=== PATIENT | male | born 1935 | race Caucasian/White ===

== ENCOUNTER 2016-09-19 19:16 | Emergency (ER) | payer OTHER ==
[2016-09-19 20:03] VITALS: BMI 29.0
--- NOTE | 2016-09-19 23:29 | PDOC ---
History of Present Illness - General History Source: Patient Exam Limitations: No Limitations - History of Present Illness Initial Comments: 09/19/16 23:41 The patient is a 81 year old male with significant past medical history of hypertension, hyperlipidemia, cardiomyopathy s/p AICD who presents to the ED left wrist and forearm pain s/p mechanical fall. Patient reports he trip and fell, landing on his outstretched left arm. He sustained pain to the left wrist and forearm. Denies LOC or head trauma. The patient denies fever, chills, cough, SOB, chest pain, and palpitations. The patient denies abdominal pain, nausea, vomiting, and diarrhea. Allergies: NKDA Social History: No alcohol, tobacco, or drug use reported. Past Surgical History: s/p AICD PCP: Dr. Jessi Reynolds <Kellee Almanzar - Last Filed: 09/19/16 23:40> - General History Source: Patient <Isaiah Sahu - Last Filed: 09/20/16 02:05> - General Chief Complaint: Injury Stated Complaint: FALL/INJURY Time Seen by Provider: 09/19/16 22:01 Past History <Kellee Almanzar - Last Filed: 09/19/16 23:40> - Past Medical History HTN: Yes Suicide Attempt (Hx): No - Surgical History Cardiac Surgery: Yes (pacemaker) - Psycho/Social/Smoking Cessation Hx Anxiety: No Suicidal Ideation: No Smoking Status: No Smoking History: Never smoked Number of Cigarettes Smoked Daily: 0 Hx Alcohol Use: No Drug/Substance Use Hx: No <Isaiah Sahu - Last Filed: 09/20/16 02:05> - Past Medical History Allergies/Adverse Reactions: Allergies Allergy/AdvReac Type Severity Reaction Status Date / Time No Known Allergies Allergy Verified 09/19/16 19:57 Home Medications: Ambulatory Orders Carvedilol 12.5 mg PO BID 06/25/12 Rosuvastatin Calcium [Crestor] 20 mg PO DAILY 06/25/12 Amlodipine Besylate [Norvasc -] 5 mg PO DAILY #0 tablet 06/26/12 Lisinopril [Prinivil] 40 mg PO DAILY #0 tablet 06/26/12 Albuterol Sulfate Inhaler - [Ventolin HFA Inhaler -] 2 inh IH PRN #1 inh Ibuprofen 800 mg PO TID #30 tablet 09/20/16 Review of Systems - Review of Systems Able to Perform ROS?: Yes Comments:: 09/19/16 23:41 CONSTITUTIONAL: Absent: fever, no chills, no fatigue EYES: Absent: visual changes ENT: Absent: ear pain, no sore throat CARDIOVASCULAR: Absent: chest pain, no palpitations RESPIRATORY: Absent: cough, no SOB GI: Absent: abdominal pain, no nausea, no vomiting, no constipation, no diarrhea GENITOURINARY: Absent: dysuria, no frequency, no hematuria MUSCULOSKELETAL: +pain to the left wrist and left forearm Absent: back pain SKIN: Absent: rash NEURO: Absent: headache <Kellee Almanzar - Last Filed: 09/19/16 23:40> *Physical Exam - Vital Signs Last Vital Signs Temp Pulse Resp BP Pulse Ox 98 F 62 22 152/80 98 09/19/16 20:01 09/19/16 20:01 09/19/16 20:01 09/19/16 20:01 09/19/16 20:01 - Physical Exam Comments: 09/19/16 23:41 GENERAL: Well-appearing, well-nourished. No apparent distress. HEENT: Normocephalic, atraumatic. PERRL, EOM intact. CARDIOVASCULAR: Normal S1, S2. Regular rate and rhythm. PULMONARY: Clear to auscultation bilaterally. ABDOMEN: Soft, non-distended, non-tender. EXTREMITIES: Soft tissue swelling. Pain on flexion of the wrist. Left elbow intact. No tenderness on palpation. No gross deformities. SKIN: Warm, dry. No rash NEUROLOGICAL: No focal neurological deficits. <Kellee Almanzar - Last Filed: 09/19/16 23:40> - Vital Signs Last Vital Signs Temp Pulse Resp BP Pulse Ox 98 F 62 22 152/80 98 09/19/16 20:01 09/19/16 20:01 09/19/16 20:01 09/19/16 20:01 09/19/16 20:01 <Isaiah Sahu - Last Filed: 09/20/16 02:05> Medical Decision Making - Medical Decision Making 09/20/16 02:04 Dr. Sahu: The scribe's documentation has been prepared under my direction and personally reviewed by me in its entirery. I confirm that the note above accurately reflects all work, treatment, procedures, and medical decision making performed by me. <Isaiah Sahu - Last Filed: 09/20/16 02:05> *DC/Admit/Observation/Transfer - Attestations Scribe Attestion: 09/19/16 23:41 Documentation prepared by Kellee Almanzar, acting as medical doctor md/medical director for Isaiah Sahu MD/. <Kellee Almanzar - Last Filed: 09/19/16 23:40> - Discharge Dispostion Admit: No <Isaiah Sahu - Last Filed: 09/20/16 02:05> Diagnosis at time of Disposition: Left wrist sprain Qualifiers: Encounter type: initial encounter Qualified Code(s): S63.502A - Unspecified sprain of left wrist, initial encounter Sprain of forearm, left Qualifiers: Encounter type: initial encounter Qualified Code(s): S63.502A - Unspecified sprain of left wrist, initial encounter - Discharge Dispostion Disposition: HOME Condition at time of disposition: Stable - Referrals Referrals: Jessi Barfield MD [Primary Care Provider] - Jayy Pradhan MD [Staff Physician] - - Patient Instructions Printed Discharge Instructions: DI for Wrist Sprain Print Language: [place] - Post Discharge Activity
[2016-09-19] MEDS ORDERED: IBUPROFEN 400 MG TABLET (FP) PO ONE (23:44)
[2016-09-19] MEDS: IBUPROFEN 600 MG TABLET (FP) PO STA (23:45)
[2016-09-20 06:03] VITALS: BP 140/79; PULSE 68; TEMP 98.1
== END 2016-09-20 05:57 | disposition home or self-care (01) ==
LOC: JERFT 19:16 → JER 19:16 → JERFT 22:07
DX: S63.502A Unspecified sprain of left wrist, initial encounter (principal); S56.912A Strain of unspecified muscles, fascia and tendons at forearm level, left arm, initial encounter; W18.39XA Other fall on same level, initial encounter; Y93.89 Activity, other specified; Y92.89 Other specified places as the place of occurrence of the external cause; I10 Essential (primary) hypertension; E78.5 Hyperlipidemia, unspecified; I42.9 Cardiomyopathy, unspecified; Z95.810 Presence of automatic (implantable) cardiac defibrillator
CPT/HCPCS: 73090-TC-LT; 73110-TC-LT; 99281-25

== ENCOUNTER 2018-03-03 15:41 | Emergency (ER) | payer OTHER ==
[2018-03-03 16:17] VITALS: BP 163/74; PULSE 74; TEMP 97.6; BMI 26.9
--- NOTE | 2018-03-03 17:11 | PDOC ---
History of Present Illness <Mendy Miles - Last Filed: 03/03/18 18:10> - General History Source: Patient Exam Limitations: Language Barrier - History of Present Illness Initial Comments: 03/03/18 18:25 The patient is a 82 year old cymro-speaking male with significant past medical history of hypertension, hyperlipidemia, cardiomyopathy s/p AICD who presents to the ED for evaluation of left flank pain which has now resolved. He states he saw his doctor on Saturday and had normal labs at the time. He states he wants to leave and does not want any treatment. The patient denies fever, chills, cough, SOB, chest pain, and palpitations. The patient denies abdominal pain, nausea, vomiting, and diarrhea. Allergies: NKDA Social History: No alcohol, tobacco, or drug use reported. Past Surgical History: s/p AICD PCP: Dr. Jessi Reynolds <Ngoc Del Valle - Last Filed: 03/03/18 18:29> - General Chief Complaint: Pain Stated Complaint: ABDOMINAL PAIN Time Seen by Provider: 03/03/18 17:11 Past History - Past Medical History COPD: No GI Disorders: Yes HTN: Yes - Surgical History Cardiac Surgery: Yes (pacemaker) - Suicide/Smoking/Psychosocial Hx Smoking Status: No Smoking History: Never smoked Have you smoked in the past 12 months: No Number of Cigarettes Smoked Daily: 0 Information on smoking cessation initiated: No Hx Alcohol Use: No Drug/Substance Use Hx: No <Mendy Miles - Last Filed: 03/03/18 18:10> <Ngoc Del Valle - Last Filed: 03/03/18 18:29> - Past Medical History Allergies/Adverse Reactions: Allergies Allergy/AdvReac Type Severity Reaction Status Date / Time No Known Allergies Allergy Verified 03/03/18 16:15 Home Medications: Ambulatory Orders Carvedilol 12.5 mg PO BID 06/25/12 Rosuvastatin Calcium [Crestor] 20 mg PO DAILY 06/25/12 Amlodipine Besylate [Norvasc -] 5 mg PO DAILY #0 tablet 06/26/12 Lisinopril [Prinivil] 40 mg PO DAILY #0 tablet 06/26/12 Albuterol Sulfate Inhaler - [Ventolin HFA Inhaler -] 2 inh IH PRN #1 inh Ibuprofen 800 mg PO TID #30 tablet 09/20/16 Review of Systems - Review of Systems Able to Perform ROS?: Yes Comments:: 03/03/18 18:26 CONSTITUTIONAL: Absent: fever, chills, fatigue EYES: Absent: visual changes ENT: Absent: ear pain, sore throat CARDIOVASCULAR: Absent: chest pain, palpitations RESPIRATORY: Absent: cough, SOB GI: Absent: abdominal pain, nausea, vomiting, constipation, diarrhea GENITOURINARY: Absent: dysuria, frequency, hematuria MUSCULOSKELETAL: (+) Left flank pain. Absent: back pain, arthralgia, myalgia SKIN: Absent: rash NEURO: Absent: headache <Ngoc Del Valle - Last Filed: 03/03/18 18:29> *Physical Exam - Vital Signs Last Vital Signs Temp Pulse Resp BP Pulse Ox 97.6 F 74 20 163/74 97 03/03/18 16:16 03/03/18 16:16 03/03/18 16:16 03/03/18 16:16 03/03/18 16:16 <Mendy Miles - Last Filed: 03/03/18 18:10> - Vital Signs Last Vital Signs Temp Pulse Resp BP Pulse Ox 97.6 F 74 20 163/74 97 03/03/18 16:16 03/03/18 16:16 03/03/18 16:16 03/03/18 16:16 03/03/18 16:16 - Physical Exam Comments: 03/03/18 18:28 Pt declined physical exam. No apparent distress. well-appearing, AAOx3. <Ngoc Del Valle - Last Filed: 03/03/18 18:29> *DC/Admit/Observation/Transfer <Mendy Miles - Last Filed: 03/03/18 18:10> - Attestations Scribe Attestion: 03/03/18 18:29 Documentation prepared by Ngoc Del Valle, acting as medical translator for Mendy Miles MD <Ngoc Del Valle - Last Filed: 03/03/18 18:29> Diagnosis at time of Disposition: Abdominal pain Qualifiers: Abdominal location: unspecified location Qualified Code(s): R10.9 - Unspecified abdominal pain - Discharge Dispostion Disposition: ELOPED - Referrals Referrals: Jessi Barfield MD [Primary Care Provider] - - Patient Instructions - Post Discharge Activity
== END 2018-03-03 18:00 | disposition left against medical advice (07) ==
LOC: JER 15:41
DX: R10.9 Unspecified abdominal pain (principal); I10 Essential (primary) hypertension; E78.5 Hyperlipidemia, unspecified; I42.8 Other cardiomyopathies; Z95.810 Presence of automatic (implantable) cardiac defibrillator
CPT/HCPCS: 99281-25

== ENCOUNTER 2018-10-20 11:31 | Day surgery (SDC) | payer OTHER ==
[2018-10-20 12:34] VITALS: BP 139/87; PULSE 86; TEMP 97.9; BMI 26.4
[2018-10-20] MEDS ORDERED: LIDOCAINE VISCOUS 2% ORAL/TOP 20 ML UNIT-DOSE CUP ONE (12:39)
== END 2018-10-20 13:00 | disposition home or self-care (01) ==
LOC: JASU-ENDO 11:31
PROVIDERS: ATTEND Internal Medicine Cardiovascular Disease
DX: Z53.8 Procedure and treatment not carried out for other reasons (principal)
CPT/HCPCS: 93312; 93325

== ENCOUNTER 2018-10-21 07:05 | Day surgery (SDC) | payer OTHER ==
[2018-10-21 07:51] VITALS: BMI 26.4
[2018-10-21] MEDS ORDERED: LIDOCAINE VISCOUS 2% ORAL/TOP 20 ML UNIT-DOSE CUP ONE (08:26)
[2018-10-21 09:07] VITALS: TEMP 97.5
--- NOTE | 2018-10-21 09:52 | EKG ---
Test Reason : Blood Pressure : / mmHG Vent. Rate : 074 BPM Atrial Rate : 074 BPM P-R Int : 218 ms QRS Dur : 120 ms QT Int : 436 ms P-R-T Axes : 057 -14 017 degrees QTc Int : 483 ms SINUS RHYTHM WITH 1ST DEGREE A-V BLOCK WITH OCCASIONAL PREMATURE VENTRICULAR COMPLEXES POSSIBLE LEFT ATRIAL ENLARGEMENT LEFT VENTRICULAR HYPERTROPHY WITH QRS WIDENING ABNORMAL ECG WHEN COMPARED WITH ECG OF 19-DEC-2012 10:01, PREMATURE VENTRICULAR COMPLEXES ARE NOW PRESENT [place] INTERVAL HAS INCREASED QT HAS LENGTHENED Confirmed by MD CARLOS, ANIA ([id number]) on 10/21/2018 9:52:15 AM Referred By: Jayesh Velez Confirmed By:ANIA GONZALEZ MD
[2018-10-21 11:13] VITALS: BP 136/72; PULSE 76
--- NOTE | 2018-11-10 12:30 | PN ---
Progress Note (short form) - Note Progress Note: Procedure Note for CAIT/synchronized cardioversion on 10/21/18 Risks including esophageal injury discussed with patient. Consent was obtained Preliminary CAIT reveals severe LV systolic dysfunction, no mass or thrombus in LA appendage, ICD lead, mild MR, moderate TR Official report on chart Successful synchronized cardioversion thru device at 35 J and converted to sinus rhythm. CAIT report and procedure note on chart Jayesh Velez MD
== END 2018-10-21 10:48 | disposition home or self-care (01) ==
LOC: JASU-ENDO 07:05
PROVIDERS: ATTEND Internal Medicine Cardiovascular Disease
PROC: 5A2204Z Restoration of Cardiac Rhythm, Single (ICD-10-PCS; 2018-10-21)
PROC: B246ZZ4 Ultrasonography of Right and Left Heart, Transesophageal (ICD-10-PCS; principal; 2018-10-21 08:00)
DX: I48.91 Unspecified atrial fibrillation (principal)
CPT/HCPCS: 92960; 93005; 93010; 93312

== ENCOUNTER → 2020-12-05 | Day surgery (SDC) | payer OTHER ==
[~2020-12-05] MED LIST: BORTEZOMIB (VELCADE) 2.5 MG/ML SUB-Q INJECTION SQ ONE; DEXAMETHASONE 4 MG TABLET (FP) PO ONE; SODIUM CHLORIDE 0.45% 250 ML IVPB ONE
[2020-12-05 11:35] LABS: BASO % 0.8 % (0-2.0); EOS % 6.4 % (0-4.5); HEMATOCRIT 27.8 % (35.4-49); HEMOGLOBIN 9.3 GM/dL (11.7-16.9); LYMPH % 14.1 % (8-40); MCH 30.7 pg (25.7-33.7); MCHC 33.3 g/dl (32.0-35.9); MEAN CELL VOLUME 92.4 fl (80-96); MEAN PLT VOLUME 10.2 fl (7.5-11.1); MONO % 7.7 % (3.8-10.2); PLATELET COUNT 160 10^3/uL (134-434); RBC 3.01 M/mm3 (4.00-5.60); WHITE BLOOD COUNT 6.7 K/mm3 (4.0-10.0)
[2020-12-05 11:55] LABS: BLOOD UREA NITROGEN 48.2 mg/dL (7-18); CALCIUM 7.7 mg/dL (8.5-10.1); MAGNESIUM 1.7 mg/dL (1.8-2.4)
[2020-12-05 11:59] LABS: CREATININE 3.6 mg/dL (0.55-1.3); URIC ACID 5.6 mg/dL (2.6-7.2)
== END | disposition home or self-care (01) ==
LOC: JONCCHEMO 05:35
PROVIDERS: ATTEND Internal Medicine Hematology & Oncology
DX: Z53.8 Procedure and treatment not carried out for other reasons (principal)
CPT/HCPCS: 36415; 80048; 83615; 83735; 84550; 85025

== ENCOUNTER 2022-05-07 21:12 | Inpatient (IN) | payer OTHER ==
[2022-05-07 21:46] VITALS: BMI 28.4
[2022-05-07] MEDS ORDERED: ASPIRIN 81 MG CHEWABLE TABLETS PO ONE (22:15)
[2022-05-07] MEDS ORDERED: ACETAMINOPHEN 500 MG TABLET (FP) PO ONE (22:15)
[2022-05-07 23:09] LABS: BASO % 0.9 % (0-2.0); EOS % 1.3 % (0-4.5); HEMATOCRIT 41.7 % (35.4-49); HEMOGLOBIN 13.7 GM/dL (11.7-16.9); LYMPH % 12.9 % (8-40); MCH 29.9 pg (25.7-33.7); MEAN CELL VOLUME 90.6 fl (80-96); MEAN PLT VOLUME 9.3 fl (7.5-11.1); MONO % 15.7 % (3.8-10.2); NEUT % 69.2 % (42.8-82.8); PLATELET COUNT 147 10^3/uL (134-434)
[2022-05-07 23:16] LABS: INR 1.52 (0.83-1.09); PROTHROMBIN TIME (PATIENT) 17.5 SEC (9.7-13.0)
[2022-05-07 23:37] LABS: CHLORIDE 104 mmol/L (98-107); SODIUM 141 mmol/L (136-145)
[2022-05-07 23:39] LABS: CALCIUM 9.1 mg/dL (8.5-10.1)
[2022-05-07 23:40] LABS: ALBUMIN 3.3 g/dl (3.4-5.0); ANION GAP 12 MMOL/L (8-16); BLOOD UREA NITROGEN 22.9 mg/dL (7-18); CO2 25 mmol/L (21-32); GLUCOSE,RANDOM 112 mg/dL (74-106); MAGNESIUM 1.9 mg/dL (1.8-2.4)
[2022-05-07 23:42] LABS: CREATININE 1.5 mg/dL (0.55-1.3)
[2022-05-07 23:43] LABS: SGOT/AST 46 U/L (15-37); SGPT/ALT 29 U/L (13-61)
[2022-05-07 23:44] LABS: BILIRUBIN,TOTAL 0.5 mg/dL (0.2-1); TOT PROT 6.6 g/dl (6.4-8.2)
[2022-05-07 23:46] LABS: ALK PHOS 55 U/L (45-117)
[2022-05-07 23:47] LABS: ANISOCYTOSIS 1+; MACROCYTOSIS 0
[2022-05-08] MEDS ORDERED: ASPIRIN 325 MG TABLET PO ONE (03:35)
[2022-05-08] MEDS ORDERED: ACETAMINOPHEN 325 MG TABLET (FP) ONE (03:39)
[2022-05-08] MEDS ORDERED: ASPIRIN 325 MG TABLET ONE (03:39)
[2022-05-08] MEDS ORDERED: SODIUM CHLORIDE 1,000 ML IV SCH (05:45)
[2022-05-08] MEDS ORDERED: APIXABAN 5 MG TABLET ONE (09:34)
[2022-05-08] MEDS ORDERED: CARVEDILOL 12.5 MG TABLET (FP) ONE (09:34)
[2022-05-08] MEDS ORDERED: amLODIPine BESYLATE 10 MG TABLET (FP) ONE (09:35)
[2022-05-08] MEDS ORDERED: TAMSULOSIN HCL 0.4 MG CAP ONE (09:35)
[2022-05-08] MEDS: APIXABAN 5 MG TABLET PO SCH ×2 (10:03→21:56)
[2022-05-08] MEDS: CARVEDILOL 12.5 MG TABLET (FP) PO SCH ×2 (10:03→21:56)
[2022-05-08] MEDS: TAMSULOSIN HCL 0.4 MG CAP PO SCH (10:03)
[2022-05-08] MEDS: amLODIPine BESYLATE 10 MG TABLET (FP) PO SCH (10:03)
[2022-05-08] MEDS ORDERED: REMDESIVIR 200 MG in SODIUM CHLORIDE 250 ML IVPB ONE (16:00)
[2022-05-08] MEDS: SODIUM CHLORIDE 1,000 ML IV SCH (17:42)
[2022-05-08] MEDS: ROSUVASTATIN CA 20 MG TABLET PO SCH (21:56)
[2022-05-09 08:28] LABS: HEMATOCRIT 42.2 % (35.4-49); HEMOGLOBIN 13.7 GM/dL (11.7-16.9); MCH 29.7 pg (25.7-33.7); MCHC 32.4 g/dl (32.0-35.9); MEAN CELL VOLUME 91.4 fl (80-96); MEAN PLT VOLUME 10.3 fl (7.5-11.1); PLATELET COUNT 126 10^3/uL (134-434); RBC 4.62 M/mm3 (4.00-5.60); RDW 13.6 % (11.9-15.9); WHITE BLOOD COUNT 4.4 K/mm3 (4.0-10.0)
[2022-05-09 08:49] LABS: CALCIUM 8.3 mg/dL (8.5-10.1)
[2022-05-09 08:52] LABS: PHOSPHOROUS 2.9 mg/dL (2.5-4.9)
[2022-05-09 08:53] LABS: CREATININE 1.1 mg/dL (0.55-1.3)
[2022-05-09] MEDS: TAMSULOSIN HCL 0.4 MG CAP PO SCH (09:00)
[2022-05-09] MEDS: APIXABAN 5 MG TABLET PO SCH ×2 (09:00→21:39)
[2022-05-09] MEDS: CARVEDILOL 12.5 MG TABLET (FP) PO SCH ×2 (09:00→21:39)
[2022-05-09] MEDS: amLODIPine BESYLATE 10 MG TABLET (FP) PO SCH (09:00)
[2022-05-09 09:39] LABS: ANISOCYTOSIS 1+; MACROCYTOSIS 0; PLATELET ESTIMATE DECREASED
[2022-05-09] MEDS: ASPIRIN 81 MG CHEWABLE TABLETS PO SCH (10:59)
[2022-05-09] MEDS ORDERED: REMDESIVIR 100 MG in SODIUM CHLORIDE 270 ML IVPB SCH (12:30)
[2022-05-09] MEDS: DEXAMETHASONE SOD PHOSPHATE 4 MG/1 ML VIAL IVPUSH SCH (12:54)
[2022-05-09] MEDS: ROSUVASTATIN CA 20 MG TABLET PO SCH (21:39)
[2022-05-09 22:03] LABS: EPI CELLS 1 /uL (0-25.1); HYALINE CASTS 0 /uL (0-3.1); URINE APPEARANCE CLEAR; URINE BACTERIA 1 /uL (0-1359); URINE BILIRUBIN NEGATIVE (NEGATIVE); URINE COLOR YELLOW; URINE GLUCOSE (UA) TRACE (NEGATIVE); URINE KETONE NEGATIVE (NEGATIVE); URINE LEUK ESTERASE NEGATIVE (NEGATIVE); URINE NITRITE NEGATIVE (NEGATIVE); URINE PROTEIN 1+ (NEGATIVE); URINE RBC 4 /uL (0-23.9); URINE UROBILINOGEN 0.2 mg/dL (0.2-1.0); URINE WBC 2 /uL (0-25.8)
[2022-05-10 08:17] LABS: BASO % 0.3 % (0-2.0); BLOOD UREA NITROGEN 19.6 mg/dL (7-18); CALCIUM 8.3 mg/dL (8.5-10.1); HEMATOCRIT 41.7 % (35.4-49); HEMOGLOBIN 13.9 GM/dL (11.7-16.9); LYMPH % 16.1 % (8-40); MCH 29.9 pg (25.7-33.7); MCHC 33.2 g/dl (32.0-35.9); MEAN CELL VOLUME 89.9 fl (80-96); MEAN PLT VOLUME 10.3 fl (7.5-11.1); MONO % 4.9 % (3.8-10.2); NEUT % 78.7 % (42.8-82.8); PLATELET COUNT 134 10^3/uL (134-434); RBC 4.64 M/mm3 (4.00-5.60); RDW 13.6 % (11.9-15.9); WHITE BLOOD COUNT 5.1 K/mm3 (4.0-10.0)
[2022-05-10 08:18] LABS: ALBUMIN 2.9 g/dl (3.4-5.0)
[2022-05-10 08:20] LABS: CREATININE 0.9 mg/dL (0.55-1.3)
[2022-05-10 08:21] LABS: PHOSPHOROUS 2.8 mg/dL (2.5-4.9); TOT PROT 6.3 g/dl (6.4-8.2)
[2022-05-10 08:22] LABS: BILIRUBIN,TOTAL 0.4 mg/dL (0.2-1)
[2022-05-10] MEDS ORDERED: REMDESIVIR 100 MG in SODIUM CHLORIDE 250 ML IVPB SCH (10:00)
[2022-05-10] MEDS: CARVEDILOL 12.5 MG TABLET (FP) PO SCH ×2 (10:37→22:10)
[2022-05-10] MEDS: ASPIRIN 81 MG CHEWABLE TABLETS PO SCH (10:38)
[2022-05-10] MEDS: APIXABAN 5 MG TABLET PO SCH ×2 (10:38→22:10)
[2022-05-10] MEDS: DEXAMETHASONE SOD PHOSPHATE 4 MG/1 ML VIAL IVPUSH SCH (10:38)
[2022-05-10] MEDS: TAMSULOSIN HCL 0.4 MG CAP PO SCH (10:38)
[2022-05-10] MEDS: amLODIPine BESYLATE 10 MG TABLET (FP) PO SCH (10:39)
[2022-05-10] MEDS: ROSUVASTATIN CA 20 MG TABLET PO SCH (22:10)
[2022-05-11 08:29] LABS: BLOOD UREA NITROGEN 18.2 mg/dL (7-18); CALCIUM 8.6 mg/dL (8.5-10.1)
[2022-05-11 08:33] LABS: CREATININE 0.9 mg/dL (0.55-1.3)
[2022-05-11 08:34] LABS: BILIRUBIN,TOTAL 0.4 mg/dL (0.2-1); TOT PROT 6.4 g/dl (6.4-8.2)
[2022-05-11] MEDS: DEXAMETHASONE SOD PHOSPHATE 4 MG/1 ML VIAL IVPUSH SCH (10:22)
[2022-05-11] MEDS: CARVEDILOL 12.5 MG TABLET (FP) PO SCH ×2 (10:22→21:57)
[2022-05-11] MEDS: ASPIRIN 81 MG CHEWABLE TABLETS PO SCH (10:22)
[2022-05-11] MEDS: APIXABAN 5 MG TABLET PO SCH ×2 (10:22→21:57)
[2022-05-11] MEDS: amLODIPine BESYLATE 10 MG TABLET (FP) PO SCH (10:22)
[2022-05-11] MEDS: TAMSULOSIN HCL 0.4 MG CAP PO SCH (10:22)
[2022-05-11] MEDS ORDERED: hydrALAZINE HCL 10 MG TABLET PO SCH (14:00)
[2022-05-11] MEDS: SODIUM CHLORIDE 1,000 ML IV SCH ×2 (21:55→21:56)
[2022-05-11] MEDS: ROSUVASTATIN CA 20 MG TABLET PO SCH (21:57)
[2022-05-12 07:17] VITALS: TEMP 98.2
[2022-05-12] MEDS: TAMSULOSIN HCL 0.4 MG CAP PO SCH (10:31)
[2022-05-12] MEDS: APIXABAN 5 MG TABLET PO SCH (10:31)
[2022-05-12] MEDS: CARVEDILOL 12.5 MG TABLET (FP) PO SCH (10:32)
[2022-05-12] MEDS: ASPIRIN 81 MG CHEWABLE TABLETS PO SCH (10:32)
[2022-05-12] MEDS: amLODIPine BESYLATE 10 MG TABLET (FP) PO SCH (10:32)
[2022-05-12] MEDS: DEXAMETHASONE SOD PHOSPHATE 4 MG/1 ML VIAL IVPUSH SCH (10:32)
[2022-05-12 10:41] VITALS: BP 157/62; PULSE 65; RESP 18
== END 2022-05-12 12:27 | disposition home or self-care (01) | DRG 178 ==
LOC: JER 21:12 → JERBED 05-08 02:10 → J4W 05-08 18:02 → J4S 05-12 02:24
PROVIDERS: ADMIT Internal Medicine; ATTEND Internal Medicine
PROC: XW033E5 Introduction of Remdesivir Anti-infective into Peripheral Vein, Percutaneous Approach, New Technology Group 5 (ICD-10-PCS; principal; 2022-05-08)
PROC: 3E0333Z Introduction of Anti-inflammatory into Peripheral Vein, Percutaneous Approach (ICD-10-PCS; 2022-05-08)
DX: U07.1 COVID-19 (principal); C90.00 Multiple myeloma not having achieved remission; I42.9 Cardiomyopathy, unspecified; I50.32 Chronic diastolic (congestive) heart failure; N17.9 Acute kidney failure, unspecified; J98.11 Atelectasis; M62.82 Rhabdomyolysis; I24.8 Other forms of acute ischemic heart disease; I13.0 Hypertensive heart and chronic kidney disease with heart failure and stage 1 through stage 4 chronic kidney disease, or unspecified chronic kidney disease; N39.0 Urinary tract infection, site not specified; I95.1 Orthostatic hypotension; I48.0 Paroxysmal atrial fibrillation; N18.9 Chronic kidney disease, unspecified; I08.1 Rheumatic disorders of both mitral and tricuspid valves; I25.119 Atherosclerotic heart disease of native coronary artery with unspecified angina pectoris; R07.89 Other chest pain; I10 Essential (primary) hypertension; E78.5 Hyperlipidemia, unspecified; N40.0 Benign prostatic hyperplasia without lower urinary tract symptoms; M60.9 Myositis, unspecified; N28.1 Cyst of kidney, acquired; M50.322 Other cervical disc degeneration at C5-C6 level; E04.1 Nontoxic single thyroid nodule; Z95.810 Presence of automatic (implantable) cardiac defibrillator
CPT/HCPCS: 0241U-QW; 36415; 70450-TC; 71045-TC-FY; 71275-TC; 72125-TC; 72170-TC-FY; 74174-TC; 76775-TC; 80048; 80053; 80061; 81003; 82550; 82553; 83735; 84100; 84443; 84484; 85025; 85610; 85730; 86140; 86850; 86900; 86901; 87086; 93005; 93010; 97116-GP; 97162-GP; 99285-25; C9399; Q9967

== ENCOUNTER 2022-08-19 11:44 | Emergency (ER) | payer OTHER ==
[2022-08-19 12:02] VITALS: BP 169/99; PULSE 81; RESP 18; TEMP 97.9; BMI 26.8
== END 2022-08-19 13:19 | disposition home or self-care (01) ==
LOC: JER 11:44
DX: I10 Essential (primary) hypertension (principal)
CPT/HCPCS: 93005; 93010; 99283-25

== ENCOUNTER 2022-09-14 09:50 | Emergency (ER) | payer OTHER ==
[2022-09-14] MEDS ORDERED: SODIUM CHLORIDE 1,000 ML IV SCH (10:00)
[2022-09-14 10:18] VITALS: BMI 23.8
[2022-09-14 10:31] LABS: INR 1.03 (0.83-1.09); PROTHROMBIN TIME (PATIENT) 11.9 SEC (9.7-13.0)
[2022-09-14 10:34] LABS: ACTIVATED PTT 34.6 SECONDS (25.2-36.5)
[2022-09-14 10:38] LABS: CHLORIDE 105 mmol/L (98-107); SODIUM 138 mmol/L (136-145)
[2022-09-14 10:40] LABS: ANION GAP 4 MMOL/L (8-16); CO2 29 mmol/L (21-32); MAGNESIUM 1.9 mg/dL (1.8-2.4)
[2022-09-14 10:41] LABS: CALCIUM 9.5 mg/dL (8.5-10.1)
[2022-09-14 10:42] LABS: ALBUMIN 4.1 g/dl (3.4-5.0); BLOOD UREA NITROGEN 13.4 mg/dL (7-18); GLUCOSE,RANDOM 119 mg/dL (74-106)
[2022-09-14 10:44] LABS: CREATININE 1.2 mg/dL (0.55-1.3); SGOT/AST 29 U/L (15-37); SGPT/ALT 30 U/L (13-61)
[2022-09-14 10:45] LABS: CHOLESTEROL 115 mg/dL (50-200); TOT PROT 7.5 g/dl (6.4-8.2)
[2022-09-14 10:46] LABS: BILIRUBIN,TOTAL 0.8 mg/dL (0.2-1); LDL CHOLESTEROL (ONLY SJRH) 53 mg/dL (5-100)
[2022-09-14 10:47] LABS: ALK PHOS 70 U/L (45-117)
[2022-09-14 10:48] LABS: HDL CHOLESTEROL 55 mg/dL (40-60)
[2022-09-14 10:49] LABS: BASO % 0.8 % (0-2.0); EOS % 1.1 % (0-4.5); HEMATOCRIT 45.1 % (35.4-49); HEMOGLOBIN 15.4 GM/dL (11.7-16.9); LYMPH % 19.5 % (8-40); MCH 30.4 pg (25.7-33.7); MCHC 34.2 g/dl (32.0-35.9); MEAN CELL VOLUME 88.9 fl (80-96); MEAN PLT VOLUME 8.6 fl (7.5-11.1); MONO % 5.3 % (3.8-10.2); NEUT % 73.3 % (42.8-82.8); PLATELET COUNT 180 10^3/uL (134-434); RBC 5.07 M/mm3 (4.00-5.60); RDW 13.6 % (11.9-15.9); WHITE BLOOD COUNT 6.3 K/mm3 (4.0-10.0)
[2022-09-14 11:12] LABS: EPI CELLS 17 /uL (0-25.1); HYALINE CASTS 0 /uL (0-3.1); URINE APPEARANCE CLEAR; URINE BACTERIA 19 /uL (0-1359); URINE BILIRUBIN NEGATIVE (NEGATIVE); URINE COLOR YELLOW; URINE GLUCOSE (UA) NEGATIVE (NEGATIVE); URINE KETONE NEGATIVE (NEGATIVE); URINE LEUK ESTERASE NEGATIVE (NEGATIVE); URINE NITRITE NEGATIVE (NEGATIVE); URINE PROTEIN 1+ (NEGATIVE); URINE RBC 69 /uL (0-23.9); URINE UROBILINOGEN 0.2 mg/dL (0.2-1.0); URINE WBC 6 /uL (0-25.8)
[2022-09-14 12:59] VITALS: BP 138/82; PULSE 90; RESP 16; TEMP 97.8
== END 2022-09-14 12:28 | disposition short-term general hospital (02) ==
LOC: JER 09:50
PROC: 3E0337Z Introduction of Electrolytic and Water Balance Substance into Peripheral Vein, Percutaneous Approach (ICD-10-PCS; principal; 2022-09-14)
DX: I63.9 Cerebral infarction, unspecified (principal)
CPT/HCPCS: 0241U-QW; 36415; 70450-TC; 70496-TC; 70498-TC; 80053; 80061; 81003; 82550; 82962; 83036; 83735; 84484; 85025; 85610; 85730; 86850; 86900; 86901; 87086; 93005; 93010; 99291; Q9967